=== PATIENT | female | born 1990 | race Caucasian/White ===

== ENCOUNTER 2017-03-01 06:50 | Emergency (ER) | payer SELFPAY ==
[2017-03-01 06:51] VITALS: BMI 24.0
[2017-03-01 07:32] VITALS: BP 115/81; PULSE 56; RESP 18; TEMP 98.4; O2SAT 100
[2017-03-01] MEDS ORDERED: Sodium Chloride 0.9% 1,000 ML IV STA (07:43)
--- NOTE | 2017-03-01 07:47 | ED PDOC ---
Arrival/HPI - General Chief Complaint: Abdominal Pain Time Seen by Provider: 03/01/17 07:06 Historian: Patient - History of Present Illness Narrative History of Present Illness (Text): 03/01/17 07:44 A 26 year old female, , LMP last month, whose past medical history includes an ectopic , presents to the emergency department complaining of nausea and vomiting for the past three days. Patient also complaining of a right sided pounding headache, which feels similar to previous, associated with photophobia and nausea. Also with lower abdominal pain for about a week. She went to PMD office about three days ago. Patient notes some diarrhea but denies any fever, cough, dysuria or any other complaints at this time. Denies any smoking or drug use. Admits to occasional drinking. Time/Duration: < week Symptom Onset: Sudden Symptom Course: Unchanged Activities at Onset: Rest Context: Home Past Medical History - Provider Review Nursing Documentation Reviewed: Yes - Tetanus Immunization Tetanus Immunization: Unknown - Past Medical History Past Medical History: No Previous - Cardiac Hx Cardiac Disorders: No - Pulmonary Hx Respiratory Disorders: No - Neurological Hx Neurological Disorder: No - HEENT Hx HEENT Disorder: No - Renal Hx Renal Disorder: No - Endocrine/Metabolic Hx Endocrine Disorders: No - Hematological/Oncological Hx Blood Disorders: No - Integumentary Hx Dermatological Disorder: No - Musculoskeletal/Rheumatological Hx Musculoskeletal Disorders: No - Gastrointestinal Hx Gastrointestinal Disorders: No - Genitourinary/Gynecological Hx Genitourinary Disorders: Yes Other/Comment: Ectopic - Psychiatric Hx Psychophysiologic Disorder: No Hx Substance Use: No - Past Surgical History Past Surgical History: No Previous - Surgical History Other/Comment: Ectopic Pregancy left - Anesthesia Hx Anesthesia: Yes Hx Anesthesia Reactions: No Hx Malignant Hyperthermia: No - Suicidal Assessment Feels Threatened In Home Enviroment: No Family/Social History - Physician Review Nursing Documentation Reviewed: Yes Family/Social History: No Known Family HX Smoking Status: Never Smoked Hx Alcohol Use: Yes Frequency of alcohol use: Socially Hx Substance Use: No Hx Substance Use Treatment: No Allergies/Home Meds Allergies/Adverse Reactions: Allergies kiwi Allergy (Verified 03/01/17 07:28) SWELLING Review of Systems - Physician Review All systems were reviewed & negative as marked: Yes - Review of Systems Constitutional: absent: Fevers Respiratory: absent: Cough Gastrointestinal: Abdominal Pain, Diarrhea, Nausea, Vomiting Genitourinary Female: absent: Dysuria Neurological: Headache Physical Exam - Physical Exam Narrative Physical Exam (Text): Constitutional: No acute distress. Head: Normocephalic. Atraumatic. Eyes: PERRL. ENT: Moist mucous membranes. Neck: Supple. Cardiovascular: Regular rate. Chest: No tenderness. Respiratory: Clear to auscultation bilaterally. GI: Soft. Bilateral lower abdominal tenderness. Nondistended. Back: No CVA tenderness. Musculoskeletal: No tenderness or swelling of extremities. Skin: No rash. Neurologic: Alert, no focal deficit. Vital Signs Reviewed: Yes Vital Signs Temp Pulse Resp BP Pulse Ox 03/01/17 07:28 98.4 F 56 L 18 115/81 100 Temperature: Afebrile Blood Pressure: Normal Pulse: Regular Respiratory Rate: Normal Appearance: Positive for: Well-Appearing, Non-Toxic, Comfortable Pain Distress: None Mental Status: Positive for: Alert and Oriented X 3 - Systems Exam Back: Present: Normal Inspection Medical Decision Making ED Course and Treatment: 03/01/17 07:47 Impression: A 26 year old female with nausea, vomiting, headache and abdominal pain. Plan: -- US OB transvaginal -- labs -- Urinalysis -- IV fluids, Tylenol -- Reassess and disposition Prior Visits: Notes and results from previous visits were reviewed. Patient last reported to the emergency department on 05/24/16 for evaluation of abdominal/pelvic pain and urinary frequency. Progress Notes: Patient positive for . US OB transvaginal Creator : Ulises Wilson MD 03/01/17 09:20 Findings: The uterus is anteverted measuring approximately 8.0 x 5.2 x 6.5 cm. . The cervix measures approximately 4.8 cm and is closed. Single living intrauterine gestation with measurements as follows: Gestational sac: MSD = 2.2 cm = 6 weeks 6 days Yolk sac: 3.3 mm pole: CRL = 1.2 cm = 7 weeks 3 days Heart motion: 142 BPM Average ultrasound age: 7 weeks 1 day +/-0 weeks 4 days IAIN: 10/17/2017 based on average ultrasound age No free fluid seen in the cul sac. Right ovary measures 3.1 x 2.5 x 3.3 cm. Right ovary exhibits arterial flow. There is a small cyst possibly representing corpus luteal cyst measuring 1.2 x 1.0 x 1.4 cm. Left ovary measures 2.2 x 1.8 x 2.7 cm and also exhibits arterial flow Impression: Single living intrauterine gestation with average ultrasound age of 7 weeks 1 day +/-0 weeks 4 days. Cardiac activity documented as indicated above. Patient in no distress. Rh+. UA negative. Advised patient to take vitamins, folice acid, DHA, f/u OBGYN, return to ER for worsening pain, fever, vomiting, dyspnea, bleeding, or any other problem. - Lab Interpretations Lab Results: 03/01/17 08:00 03/01/17 08:00 Lab Results 03/01/17 09:20: Blood Type Confirm O POSITIVE 03/01/17 08:00: Beta HCG, Quant [id number] H 03/01/17 08:00: Blood Type O POSITIVE, Antibody Screen Negative, BBK History Checked No verified bt 03/01/17 08:00: Sodium 138, Potassium 3.5 L, Chloride 104, Carbon Dioxide 23, Anion Gap 15, BUN 5 L, Creatinine 0.7, Est GFR ( Amer) > 60, Est GFR (Non -Af Amer) > 60, Random Glucose 102, Calcium 9.3, Total Bilirubin 0.8, AST 21, ALT 20, Alkaline Phosphatase 60, Total Protein 7.1, Albumin 4.1, Globulin 3.0, Albumin/Globulin Ratio 1.4, Lipase 57, Progesterone Pending 03/01/17 08:00: WBC 7.6, RBC 4.39, Hgb 11.9 L, Hct 36.2, MCV 82.5, MCH 27.1, MCHC 32.9, RDW 13.3, Plt Count 242, MPV 10.9, Gran % 63.3, Lymph % (Auto) 29.3, Meagher % (Auto) 6.6 H, Eos % (Auto) 0.5 L, Baso % (Auto) 0.3, Gran # 4.83, Lymph # 2.2, Meagher # 0.5, Eos # 0.0, Baso # 0.02 03/01/17 06:45: Urine Color Yellow, Urine Appearance Clear, Urine pH 6.0, Ur Specific [place] >= 1.030, Urine Protein Negative, Urine Glucose (UA) Negative, Urine Ketones Negative, Urine Blood Negative, Urine Nitrate Negative, Urine Bilirubin Negative, Urine Urobilinogen 1.0 H, Ur Leukocyte Esterase Negative I have reviewed the lab results: Yes - RAD Interpretation Radiology Orders: 03/01/17 07:44 OB TRANSVAGINAL [US] Stat - Medication Orders Current Medication Orders: Discontinued Medications Acetaminophen (Tylenol 325mg Tab) 650 mg PO STAT STA Stop: 03/01/17 07:45 Last Admin: 03/01/17 08:10 Dose: 650 mg Sodium Chloride (Sodium Chloride 0.9%) 1,000 mls @ 999 mls/hr IV .Q1H1M STA Stop: 03/01/17 08:43 Last Admin: 03/01/17 08:09 Dose: 999 mls/hr - Scribe Statement The provider has reviewed the documentation as recorded by the Mariah Ledesma Provider Scribe Attestation: All medical record entries made by the Scribe were at my direction and personally dictated by me. I have reviewed the chart and agree that the record accurately reflects my personal performance of the history, physical exam, medical decision making, and the department course for this patient. I have also personally directed, reviewed, and agree with the discharge instructions and disposition. Disposition/Present on Arrival - Present on Arrival Any Indicators Present on Arrival: No History of DVT/PE: No History of Uncontrolled Diabetes: No Urinary Catheter: No History of Decub. Ulcer: No History Surgical Site Infection Following: None - Disposition Have Diagnosis and Disposition been Completed?: Yes Diagnosis: Ovarian cyst, Disposition: HOME/ ROUTINE Disposition Time: 09:54 Patient Plan: Discharge Condition: STABLE Discharge Instructions (ExitCare): (ED) Prescriptions: Acetaminophen [Tylenol 325mg tab] 2 tab PO Q4H #30 tab Doxylamine/Pyridoxine HCl (B6) [Prieto Dick 10-10 mg Tablet] 2 tab PO QPM #30 tablet. Referrals: PCP,NO [Primary Care Provider] - Follow up with primary
[2017-03-01 08:03] LABS: URINE BILIRUBIN NEGATIVE (NEGATIVE); URINE BLOOD NEGATIVE (NEGATIVE); URINE GLUCOSE (UA) NEGATIVE (NEGATIVE); URINE LEUKOCYTE ESTERASE NEGATIVE Leu/uL (NEGATIVE); URINE NITRATE NEGATIVE (NEGATIVE); URINE PROTEIN NEGATIVE mg/dL (<30 mg/dL)
[2017-03-01 08:06] LABS: URINE COLOR YELLOW (YELLOW)
[2017-03-01 08:07] LABS: URINE APPEARANCE CLEAR (CLEAR)
[2017-03-01 08:29] LABS: BASO # 0.02 K/mm3 (0.0-2.0); BASO % 0.3 % (0.0-3.0); EOS % 0.5 % (1.5-5.0); GRAN # 4.83 (1.4-6.5); GRAN % 63.3 % (50.0-68.0); HEMOGLOBIN 11.9 gm/dL (12.0-16.0); LYMPH # 2.2 (1.2-3.4); LYMPH % 29.3 % (22.0-35.0); MEAN CELL VOLUME 82.5 fL (80.0-105.0); MEAN CORPUSCULAR HEMOGLOBIN 27.1 pg (25.0-35.0); MEAN CORPUSCULAR HGB CONC 32.9 g/dl (31.0-37.0); MEAN PLATELET VOLUME 10.9 fl (7.0-11.0); MONO # 0.5 (0.1-0.6); MONO % 6.6 % (1.0-6.0); PLATELET COUNT 242 10^3/uL (120.0-450.0); RBC 4.39 10^6/uL (3.5-6.1); RED CELL DISTRIBUTION WIDTH 13.3 % (11.5-14.5); WHITE BLOOD COUNT 7.6 10^3/ul (4.5-11.0)
[2017-03-01 08:41] LABS: ALB/GLOB RATIO 1.4 (1.1-1.8); ALBUMIN 4.1 g/dL (3.0-4.8); ALT/SGPT 20 U/L (7-56); AST/SGOT 21 U/L (15-39); BLOOD UREA NITROGEN 5 mg/dL (7-21); CALCIUM 9.3 mg/dL (8.4-10.5); GFR AFRICAN-AMERICAN > 60; GFR NON-AFRICAN AMERICAN > 60; LIPASE 57 U/L (23-300)
--- NOTE | 2017-03-01 09:45 | US ---
Pelvic/OB ultrasound dated 03/01/2017. History: Abdominal pain in . . Assess cervix Transvaginal sonographic evaluation of the pelvis performed. . Correlation made with prior pelvic ultrasound 05/24/2016. Findings: The uterus is anteverted measuring approximately 8.0 x 5.2 x 6.5 cm. . The cervix measures approximately 4.8 cm and is closed. Single living intrauterine gestation with measurements as follows: Gestational sac: MSD = 2.2 cm = 6 weeks 6 days Yolk sac: 3.3 mm pole: CRL = 1.2 cm = 7 weeks 3 days Heart motion: 142 BPM Average ultrasound age: 7 weeks 1 day +/-0 weeks 4 days IAIN: 10/17/2017 based on average ultrasound age No free fluid seen in the cul sac. Right ovary measures 3.1 x 2.5 x 3.3 cm. Right ovary exhibits arterial flow. There is a small cyst possibly representing corpus luteal cyst measuring 1.2 x 1.0 x 1.4 cm. Left ovary measures 2.2 x 1.8 x 2.7 cm and also exhibits arterial flow Impression: Single living intrauterine gestation with average ultrasound age of 7 weeks 1 day +/-0 weeks 4 days. Cardiac activity documented as indicated above. .
[2017-03-02 13:53] LABS: PROGESTERONE 10.4 ng/mL
== END 2017-03-01 10:13 | disposition home or self-care (01) ==
LOC: ED 06:50
DX: O34.81 Maternal care for other abnormalities of pelvic organs, first trimester (principal); Z3A.01 Less than 8 weeks gestation of pregnancy; N83.201 Unspecified ovarian cyst, right side
CPT/HCPCS: 76817; 80053; 81003; 83690; 84144; 84702; 85025; 86850; 86900; 87086; 99284; J7040